=== PATIENT | female | born 1955 | race Caucasian/White ===

== ENCOUNTER 2019-05-31 16:48 | Outpatient (REF) | payer OTHER, SELFPAY ==
[2019-05-31 20:48] LABS: TSH 4.58 uIU/mL (0.36-3.74)
== END 2019-05-31 17:08 ==
LOC: NCHCN 16:48
PROVIDERS: PCP Physician Assistant; Visit Provider Internal Medicine
DX: E03.9 Hypothyroidism, unspecified (principal); K21.9 Gastro-esophageal reflux disease without esophagitis; Z00.00 Encounter for general adult medical examination without abnormal findings; Z80.3 Family history of malignant neoplasm of breast
CPT/HCPCS: 84443

== ENCOUNTER 2020-06-24 21:09 | Outpatient (REF) | payer OTHER, SELFPAY ==
[2020-06-24 20:09] LABS: TSH 8.61 uIU/mL (0.36-3.74)
== END 2020-06-24 21:29 ==
LOC: NCHCN 21:09
PROVIDERS: PCP Physician Assistant; Visit Provider Internal Medicine
DX: Z00.00 Encounter for general adult medical examination without abnormal findings (principal); Z13.29 Encounter for screening for other suspected endocrine disorder
CPT/HCPCS: 84443

== ENCOUNTER 2021-09-05 10:33 | Outpatient (REF) | payer OTHER, SELFPAY ==
[2021-09-05 18:38] LABS: Calculated LDL 167 mg/dL (<100); Cholesterol 271 mg/dL (<200); HDL Cholesterol 98 mg/dL (40-60); TSH 2.27 uIU/mL (0.36-3.74); Triglyceride 33 mg/dL (<150)
== END 2021-09-05 10:34 | disposition home or self-care (01) ==
LOC: NCHCN 10:33
PROVIDERS: PCP Physician Assistant; Visit Provider Internal Medicine
DX: E03.9 Hypothyroidism, unspecified (principal); Z00.00 Encounter for general adult medical examination without abnormal findings
CPT/HCPCS: 80061; 84443

== ENCOUNTER 2021-10-29 15:34 | Outpatient (REF) | payer OTHER, SELFPAY ==
--- OUTSIDE RECORDS SUMMARY | 2021-10-29 15:37 | XMS_ITS | Encounter Summary ---
:1955 Author Care Team Providers Name Role Phone Skyler Mohan MD Primary Care Provider [phone] Qing Cho MD General Surgeon [phone] Reason for Visit annual padding gluer exam Patient declines clinical research monitor Assessment and Plan 1. Gynecologic examination She no longer needs Pap smears due to her age. We will schedule her mammogram for March. She has her ABUS in October. SHe already has a DEXA scheduled for November. 2. Screening mammography ? MAMMO, screening, tomosynt hesis, bilateral - If indicated may do any of the following: ABUS R92.2, Z12.31. US Br east ABUS Bilat; = 54350 US Breast BILAT LIMITED; US Breast LT LIMITED; US Breast RT LIMITED 98757 MG Mammo ZO ADD VIEW BILAT = 60497 & 97100 (BIRADS Cat 0) MG Mammo Diagnostic Dig BILAT = 70556 MG Mammo ZO ADD VIEW LT = 17286 & 53292 (BIRADS Cat 0) MG Mammo ZO ADD VIEW RT = 34936 & 59698 (BIRADS Cat 0) MG Mammo Diagnostic Digital LT = 62644 MG Mammo Diagnostic Digital RT = 82456 US Breast BILAT COMPL ETE; US Breast LT COMPLETE; US Breast RT COMPLETE = 63657 Discussion Note: None recorded.Patient educational handouts: No information available. Plan of Care Reminders Provider Appointments e 20 09/16/2022 Jourdan Henao MD 1:30PM ? Return to on or around ? Office 10/25/2025 Lab None ? ? recorded. Referral None ? ? recorded. Procedures None ? ? recorded. Surgeries None ? ? recorded. Imaging MAMMO, 09/12/2021 [facility] Radiolo gy Tomosynthesis, (Internal) Bilateral Medications Name Start Date ? ? neomycin 3.5 mg/g-polymyxin B 10,000 unit/g-dexameth 0 .1 % eye oint ? pantoprazole 40 mg tablet,delayed release ? Synthroid 25 mcg tablet ? Take 1 tablet every day by oral route. Medications Administered None recorded. Vitals Height Weight BMI Blood Pressure 5 ft 4 in 123 lbs 21.1 kg/m2 120/70 mm[Hg] Results Lab Results None recorded. Allergies Code Code System Name Reaction Severity Onset 723 RxNorm Amoxicillin Nausea ? Vomiting ? ? Problems Name Status Onset Date Source ? Melanoma in Situ of Trunk Active ? Histor y Uterine Leiomyoma Active ? History Senile Hyperkeratosis Active ? History Disorder of Skin And/or Subcutaneous Tissue Active ? History Procedures Date Name Performed by ? 08/11/2017 Local Excision Information not avai labjada Notes: Left breast mass; repeat 8 10/11/1960 Tonsillectomy Information not avai lable 09/12/2021 MAMMO, Screening, Tomosynthesis, [facility] Radiology (Internal) Bilateral [address] [place] [address] (Work Place) Vaccine List Vaccine Type Hep B, adult influenza, injectable, quadrivalent 07/13/2018 influenza, seasonal, injectable 07/11/2010 07/24/2015 08/02/2017?0.5 mL MMR Tdap 09/12/2009?0.5 mL varicella Social History Tobacco Smoking Status Never Smoker What type of diet are you following? REGULAR How many children do you have? 0 Are you currently employed? Y What is your code status? 0 How much tobacco do you chew? none Performs monthly self-breast exam? N What was the date of your most recent 01/27/2019 tobacco screening? General stress level Low What is your exercise level? Moderate What is your relationship status? Live alone or with others? with others What is your level of alcohol Moderate consumption? Education 4 Year College What is your level of caffeine Moderate Notes: 1 cup a day consumption? 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 Past Encounters 09/12/2021 Gynecologic Examination; Screening Mammo graphy Jourdan Rodriguez MD: [address] [place] [phone], Ph. History of Present Illness Note: <div>She is here for her [employer] HME. She reports that she is doing well. She denies bowel orbladder problems. There is no pelvic or abdominal pain. She has no vaginal bleeding or discharge. She was recently diagnosed with hypothyroidism and is on 25 mcg of Synthroid. This is worked well for her in terms of allowing her to feel more energy and exercise.</div>Review of Systems: ROS as noted in the HPI Review of Systems None recorded. Physical Exam ? Notes: <p>Well-developed well-emely shed female.</p><p>Lungs: Clear to auscultation</p><p>Heart: Regular rate and rhythm</p><p>Breasts: no skin changes, no dominant masses< /p><p>Abdomen: Soft nontender</p><p>: External genitalia appear normal</ p><p>Uterus: AV, mobile, non tender, normal size</p><p>Adnexa: No adnexa l masses palpated</p>
--- OUTSIDE RECORDS SUMMARY | 2021-10-29 15:37 | XMS_ITS ---
:1955 Author Care Team Providers Name Role Phone THERESA RIDDLE MD Primary Care Provider [phone] ANAMIKA ADAM MD General Surgeon [phone] Allergies Code Code System Name Reaction Severity Status Onset 723 RxNorm Amoxicillin Nausea ? Active ? Vomiting ? Active ? Medications Name Status Start Date Stop Date ? ? neomycin 3.5 mg/g-polymyxin B Active ? No t available 10,000 unit/g-dexameth 0.1 % eye oint pantoprazole 40 mg Active ? Not available tablet,delayed release Synthroid 25 mcg tablet Active ? Not avai lable Take 1 tablet every day by oral route. Vagifem 10 mcg vaginal tablet Completed 02/05/2014 1 Tablet: two times a week Problems Name Status Onset Date Source ? Melanoma in Situ of Trunk Active ? Histor y Uterine Leiomyoma Active ? History Atrophic Vaginitis Unknown ? History Senile Hyperkeratosis Active ? History Disorder of Skin And/or Subcutaneous Tissue Active ? History Gynecologic Examination Unknown ? History Screening Mammography Unknown ? History Procedure by Method Unknown ? History Evaluation Procedure Unknown ? History Procedures Date Name Performed by ? 08/11/2017 Local Excision Information not avai lable Notes: Left breast mass; repeat 8 10/11/1960 Tonsillectomy Information not avai lable 12/26/2018 MAMMO, Screening, Tomosynthesis, [facility] Radiology (Internal) Bilateral [address] [place], [place] [id number] (Work Place) 05/18/2019 MAMMO, Screening, Tomosynthesis, [facility] Radiology (Internal) Bilateral [address] [place], [place] [id number] (Work Place) 03/27/2020 US, Breast [facility] Radiology (Internal) [address] [place], [place] [id number] (Work Place) 06/13/2020 MAMMO, Screening, Tomosynthesis, [facility] Radiology (Internal) Bilateral [address] [place] [address] (Work Place) 03/27/2021 US, Breast [facility] (Internal) [address] [place] [address] (Work Place) 09/12/2021 MAMMO, Screening, Tomosynthesis, [facility] Radiology (Internal) Bilateral [address] [place] [address] (Work Place) Results Lab Results Date Name Specimen Result Interpretation Description Value Range Status Address ? 06/13/2020 Pap Test, MISC ? Hpv see ? Final [facility] Thinprep, report Hospita l Lab Cervical (Interna l): [address] ? ? MISC ? Pap see ? Final [facility] report Hospital L ab (Internal) : [address] ? ? MISC ? Report (see ? Final [facility] ntry below) Hospital L ab (Internal) : [address] t 02/14/2018 Pap Test, MISC - Hpv see ? Final [facility] Thinprep, report Hospita l Lab Cervical (Interna l): [address] t ? ? MISC - Pap see ? Final [facility] report Hospital L [facility] (Internal) : [address] t ? ? MISC - Report (added) ? Corrected [facility] results Hospital Lab below (Internal) : [address] t 10/13/2017 Pathology TISS ? Report results ? Final [facility] L ab (Internal) : [address] 08/25/2017 Pathology TISS ? Report results ? Final [facility] below [facility] L [facility] (Internal) : [address] t 06/21/2017 Pathology TISS ? Report results ? Final [facility] below Hospital L ab (Internal) : [address] t 02/01/2017 Venipuncture BLD ? Venpn* ? ? Final [facility] L [facility] (Internal) : [address] t 02/01/2017 Lipid Panel, S High Chol 216 mg/dL 50- Hannah l [facility] Serum 200 Hospital L ab mg/ (Internal) : dL [address] ? ? S ? Trig 46 mg/dL 10- Final [facility] untry 150 Hospital L ab mg/ (Internal) : dL [address] ? ? S High Hdl 79 mg/dL 40- Final [facility] untry 60 Hospital L ab mg/ (Internal) : dL [address] ? ? S ? Ldl 128 mg/dL 0-1 Final [facility] ountry 30 Hospital L ab mg/ (Internal) : dL [address] 02/01/2017 Glucose, Serum S ? g/r 83 mg/dL 74- Fin al [facility] or Plasma 106 Hospita l Lab mg/ (Internal) : dL [address] Past Encounters 09/12/2021 Gynecologic Examination; Screening Mammo graphy Jourdan Rodriguez MD: [address] [place] [phone], Ph. 06/13/2020 Gynecologic Examination; Screening Mammo graphy Jourdan Rodriguez MD: [address] [place] [phone], Ph. Social History Tobacco Smoking Status Never Smoker Vaccine List Vaccine Type Hep B, adult influenza, injectable, quadrivalent 07/13/2018 influenza, seasonal, injectable 07/11/2010 07/24/2015 08/02/2017?0.5 mL MMR Tdap 09/12/2009?0.5 mL varicella Plan of Care Reminders Provider Appointments None ? ? recorded. Lab None ? ? recorded. Referral None ? ? recorded. Procedures None ? ? recorded. Surgeries None ? ? recorded. Imaging None ? ? recorded. Vitals 09/12/2021 02:30PM E 20 Height Weight BMI Blood Pressure 162.56 cm 55.79 kg 21.1 kg/m2 120/70 mm[Hg] 06/13/2020 09:30AM HME 20 Weight Blood Pressure 51.85 kg 110/68 mm[Hg] 05/18/2019 01:00PM E 20 Height Weight BMI Blood Pressure 160.02 cm 53.98 kg 21.1 kg/m2 116/76 mm[Hg] 06/21/2017 Weight Blood Pressure 54.43 kg 140/80 mm[Hg] 01/14/2017 Height Weight Blood Pressure 162.56 cm 54.43 kg 126/74 mm[Hg] 12/19/2015 Height Weight Blood Pressure 162.56 cm 53.52 kg 120/80 mm[Hg] 10/24/2014 Height Weight Blood Pressure 162.56 cm 56.25 kg 120/70 mm[Hg] 10/19/2013 Height Weight Blood Pressure 162.56 cm 57.24 kg 122/64 mm[Hg] 09/29/2012 Height Weight Blood Pressure 162.56 cm 56.56 kg 122/64 mm[Hg] 09/24/2011 Weight Blood Pressure 56.7 kg 118/62 mm[Hg] 09/17/2010 Weight Blood Pressure 53.07 kg 122/64 mm[Hg] 09/12/2009 Weight Blood Pressure 53.07 kg 130/70 mm[Hg] 08/30/2008 Height Weight Blood Pressure 162.56 cm 53.75 kg 134/90 mm[Hg] 08/01/2007 Weight Blood Pressure 56.7 kg 110/60 mm[Hg] 09/22/2005 Height Weight Blood Pressure 162.56 cm 54.88 kg 138/84 mm[Hg]
[2021-10-29 22:16] LABS: TSH (W/Ref FT4) 2.42 uIU/mL (0.36-3.74)
== END 2021-10-29 15:35 | disposition home or self-care (01) ==
LOC: NCHCN 15:34
PROVIDERS: PCP Physician Assistant; Visit Provider Internal Medicine
DX: E03.9 Hypothyroidism, unspecified (principal)
CPT/HCPCS: 84443

== ENCOUNTER 2022-07-08 15:11 | Outpatient (REF) | payer MEDICARE, SELFPAY ==
[2022-07-08 20:52] LABS: TSH 3.53 uIU/mL (0.36-3.74)
== END 2022-07-08 15:12 | disposition home or self-care (01) ==
LOC: NCHCN 15:11
PROVIDERS: PCP Physician Assistant; Visit Provider Internal Medicine
DX: Z00.00 Encounter for general adult medical examination without abnormal findings (principal)
CPT/HCPCS: 84443

== ENCOUNTER 2023-07-14 12:22 | Outpatient (REF) | payer MEDICARE, SELFPAY ==
[2023-07-14 20:49] LABS: TSH 2.95 uIU/mL (0.36-3.74)
== END 2023-07-14 12:23 | disposition home or self-care (01) ==
LOC: NCHCN 12:22
PROVIDERS: PCP Physician Assistant; Visit Provider Internal Medicine
DX: E03.9 Hypothyroidism, unspecified (principal)
CPT/HCPCS: 84443

== ENCOUNTER 2024-07-17 15:28 | Outpatient (REF) | payer MEDICARE, SELFPAY ==
[2024-07-17 19:20] LABS: HCT 41.6 % (36.0-46.0); MCH 30.8 pg (27.0-33.0); MCHC 33.7 % (32.0-36.0); MCV 91 fL (80-95); MPV 10.2 fL (8.0-11.0); Platelet Count 197 10^3/uL (130-400); RBC 4.55 10^6/uL (3.93-5.22); RDW 13.6 % (11.7-14.6); RDW-SD 45.9 fL; WBC 5.83 10^3/uL (4.4-10.8)
[2024-07-17 20:47] LABS: ALT 25 U/L (14-59); AST 16 U/L (15-37); Albumin 4.5 g/dL (3.4-5.0); Alkaline Phosphatase 76 U/L (46-116); Anion Gap 11.6 mmol/L (3-11); BUN 21 mg/dL (7-18); Bilirubin, Total 0.44 mg/dL (0.2-1.0); CO2 26.4 mmol/L (21.0-32.0); CREATININE 0.8 mg/dL (0.55-1.02); Calcium 9.8 mg/dL (8.5-10.1); Calculated LDL 179 mg/dL (<100); Chloride 105 mmol/L (98-107); Cholesterol 284 mg/dL (<200); Estimated GFR 79.22 (mL/min/1.73m2); Glucose 96 mg/dL (74-106); HDL Cholesterol 93 mg/dL (40-60); Potassium 3.8 mmol/L (3.5-5.1); Sodium 143 mmol/L (136-145); TSH 3.19 uIU/Ml (0.36-3.74); Triglyceride 63 mg/dL (<150); Vitamin D 25 Total 27.5 ng/mL (30-100)
[2024-07-19 10:32] LABS: Hepatitis C Ab w Rflx HCV PCR Negative (Negative)
== END 2024-07-17 15:29 | disposition home or self-care (01) ==
LOC: NCHCN 15:28
PROVIDERS: PCP Physician Assistant; Visit Provider Internal Medicine
DX: Z13.6 Encounter for screening for cardiovascular disorders (principal); R63.4 Abnormal weight loss; M81.0 Age-related osteoporosis without current pathological fracture
CPT/HCPCS: 80053; 80061; 82306; 85027; 86803; 84443

== ENCOUNTER 2024-11-02 12:37 | Outpatient (REF) | payer MEDICARE, SELFPAY ==
[2024-11-02 19:33] LABS: ALT 26 U/L (14-59); Calculated LDL 95 mg/dL (<100); Cholesterol 213 mg/dL (<200); Glucose 97 mg/dL (74-106); HDL Cholesterol 103 mg/dL (40-60); Triglyceride 75 mg/dL (<150)
[2024-11-02 20:05] LABS: Creatine Kinase 93 U/L (26-192)
== END 2024-11-02 12:38 | disposition home or self-care (01) ==
LOC: NCHCN 12:37
PROVIDERS: PCP Physician Assistant; Visit Provider Internal Medicine
DX: Z13.6 Encounter for screening for cardiovascular disorders (principal)
CPT/HCPCS: 80061; 82550; 82947; 84460

== ENCOUNTER 2025-01-29 16:31 | Outpatient (REF) | payer MEDICARE, SELFPAY ==
[2025-01-29 19:41] LABS: Calculated LDL 105 mg/dL (<100); Cholesterol 213 mg/dL (<200); HDL Cholesterol 100 mg/dL (>or=50); Triglyceride 44 mg/dL (<150)
== END 2025-01-29 16:32 | disposition home or self-care (01) ==
LOC: NCHCN 16:31
PROVIDERS: PCP Physician Assistant; Visit Provider Internal Medicine
DX: E78.5 Hyperlipidemia, unspecified (principal)
CPT/HCPCS: 80061

== ENCOUNTER 2025-05-25 17:09 | Outpatient (REF) | payer MEDICARE, SELFPAY ==
[2025-05-25 19:26] LABS: TSH 3.53 uIU/mL (0.36-3.74)
== END 2025-05-25 17:10 | disposition home or self-care (01) ==
LOC: NCHCN 17:09
PROVIDERS: PCP Physician Assistant; Visit Provider Internal Medicine
DX: E03.9 Hypothyroidism, unspecified (principal)
CPT/HCPCS: 84439; 84443